=== PATIENT | male | born 1980 | race Caucasian/White ===

== ENCOUNTER 2020-09-19 11:24 | Inpatient (IN) | payer SELFPAY ==
[~2020-09-19] VITALS: Ht 180.3 cm; Wt 86.4 kg
[2020-09-19] MEDS ORDERED: IV NORMAL SALINE 1,000ML 1,000 ML IV SCH (12:00)
[2020-09-19] MEDS ORDERED: ONDANSETRON PF 4 MG/2 ML VIAL. IVP ONE (12:00)
[2020-09-19] MEDS ORDERED: HYDROmorphone PF 1 MG/ML DISP.SYRIN IVP ONE (12:00)
--- NOTE | 2020-09-19 12:08 | EKG ---
[address] [address] Test Date: 2020-09-19 Test Time: 11:38:21 Pat Name: CALLY PAGEPingYessica Department: Room: Gender: M Binman: DANISHA : 1980 Requested By: JEY HENLEY Order Number: [id number] Reading MD: Measurements Intervals [place] Rate: 79 P: 26 AL: 130 QRS: 29 QRSD: 82 T: 28 QT: 368 QTc: 423 Interpretive Statements SINUS RHYTHM OTHERWISE NORMAL ECG RI6.02 No previous ECG available for comparison
[2020-09-19 12:41] LABS: BASO % 0 % (0-3); EOS % 0 % (0-3); HEMATOCRIT 52.3 % (39.0-53.0); LYMPH # 1.1 x10^3/uL (1.0-4.8); LYMPH % 8 % (24-48); MEAN CORPUSCULAR HEMOGLOBIN 34 pg (25-35); MEAN CORPUSCULAR HGB CONC 34 g/dL (31-37); MEAN CORPUSCULAR VOLUME 99 fL (79-100); MONO # 0.7 x10^3/uL (0.0-1.1); MONO % 5 % (0-9); NEUT # 12.2 x10^3uL (1.8-7.7); NEUT % 87 % (31-73); PLATELET COUNT 198 x10^3/uL (140-400); RED BLOOD COUNT 5.29 x10^6/uL (4.30-5.70); RED CELL DISTRIBUTION WIDTH 13.2 % (11.5-14.5)
[2020-09-19 12:42] LABS: CALCIUM 8.8 mg/dL (8.5-10.1); CREATININE 1.1 mg/dL (0.7-1.3); GFR 74.1; POTASSIUM 4.1 mmol/L (3.5-5.1)
[2020-09-19 12:48] LABS: ALBUMIN 3.6 g/dL (3.4-5.0); DIRECT BILIRUBIN 0.1 mg/dL (0.0-0.2); TOTAL BILIRUBIN 0.6 mg/dL (0.2-1.0); TOTAL PROTEIN 7.6 g/dL (6.4-8.2)
--- NOTE | 2020-09-19 12:52 | RAD ---
XR CHEST 1V Clinical History: Reason: upper abd pain, left chest pain / Spl. Instructions: / History: Technique: AP view of the chest was obtained at 09/19/2020 12:27 PM. Comparison: None. Findings: The cardiomediastinal silhouette is normal. The pulmonary vasculature is normal. The lungs and pleura l margins are clear. Impression: No evidence of an acute cardiopulmonary process. Electronically signed by: Buzz Lopez III, MD (09/19/2020 12:49 PM) [facility]
--- NOTE | 2020-09-19 12:53 | RAD ---
EXAM: CT Abdomen and Pelvis without IV contrast CLINICAL HISTORY: Left flank pain COMPARISON: none TECHNIQUE: Helical CT of the abdomen and pelvis without intravenous contrast. Axial, coronal and sagi ttal reformatted images were generated. PQRS compliance statement - One or more of the following individualized dose reduction techniques wer e utilized for this study: 1. Automated exposure control 2. Adjustment of the mA and/or kV according to patient size 3. Use of iterative reconstruction technique FINDINGS: Lack of intravenous contrast limits evaluation of solid organs, vasculature, and lymph nodes. Lower chest: Lung bases are clear. Abdomen and Pelvis: Hepatic hypoattenuation likely fatty liver. High density material dependently within the gallbladder likely sludge. The spleen and adrenal glands are grossly unremarkable. No focal renal lesion. Nonobstructing renal calculi bilaterally. No hydronephrosis or hydroureter. Bl adder is unremarkable. There is infiltration about the pancreatic tail consistent with acute pancreatitis. No associated loc ulated fluid collection. Appendix is normal. Moderate colonic stool content is seen. No small or large bowel dilatation. No ab dominal or pelvic ascites. No abdominal or pelvic lymphadenopathy. Trace fat-containing periumbilical hernia. Aorta is normal in caliber with intermittent atherosclerot ic calcifications. Bones: No aggressive osseous lesion is seen. IMPRESSION: 1. Acute pancreatitis without associated loculated fluid collection. 2. Hepatic hypoattenuation likely fatty liver. 3. High density material dependently within the gallbladder likely sludge. 4. Nonobstructing renal calculi bilaterally. No hydronephrosis or hydroureter. Electronically signed by: Leonid Philip MD (09/19/2020 12:50 PM) [facility]
--- NOTE | 2020-09-19 13:36 | PHYS DOC ---
Past History Past Medical History: Hypertension Past Surgical History: Other Additional Past Surgical Histo: Vascular surgery to right arm. Alcohol Use: Heavy Additional Alcohol Information: 1 pint daily General Adult EDM: Chief Complaint: ABDOMINAL PAIN HPI: HPI: 40-year-old male past medical history UTI alcohol abuse and tobacco dependence, presents the ED with complaints of epigastric abdominal pain and right mid axillary line rib pain with associated nausea, nonbloody nonbilious vomiting 3 times this morning. Symptoms were preceded by a normal bowel movement around 7:30 AM. Review of Systems: Review of Systems: Constitutional: Denies fever or chills Eyes: Denies change in visual acuity HENT: Denies nasal congestion or sore throat Respiratory: Denies cough or shortness of breath Cardiovascular: Denies chest pain or edema GI: Denies abdominal pain, nausea, vomiting, bloody stools or diarrhea : Denies dysuria Musculoskeletal: Denies back pain or joint pain Integument: Denies rash Neurologic: Denies headache, focal weakness or sensory changes Endocrine: Denies polyuria or polydipsia Lymphatic: Denies swollen glands Psychiatric: Denies depression or anxiety Current Medications: Current Meds: Current Medications Medications (Trade) Dose Ordered Sig/Alvina Start Time Stop Time Status Last Admin Dose Admin Hydromorphone HCl (Dilaudid) 1 mg 1X ONCE 09/19/20 12:00 09/19/20 12:06 DC 09/19/20 12:19 1 MG Ondansetron HCl (Zofran) 4 mg 1X ONCE 09/19/20 12:00 09/19/20 12:06 DC 09/19/20 12:18 4 MG Sodium Chloride 1,000 ml @ 1,000 mls/hr Q1H 09/19/20 12:00 09/19/20 12:59 DC 09/19/20 12:17 1,000 MLS/HR Allergies: Allergies: Allergies Coded Allergies Type Severity Reaction Last Updated Verified No Known Drug Allergies 09/19/20 No Physical Exam: PE: Constitutional: Well developed, well nourished, no acute distress, non-toxic appearance. HENT: Normocephalic, atraumatic, Eyes: EOMI, conjunctiva normal, no discharge. Neck: Normal range of motion, supple, Cardiovascular: S1/2 present, regular rhythm Lungs & Thorax: Speaking in full sentences, bilateral equal chest rise, no tachypnea or increased work of breathing Abdomen: soft, no tenderness, Skin: Warm, dry, no erythema, no rash. [] Back: No tenderness, no CVA tenderness. [] Extremities: No tenderness, no cyanosis, no lower extremity edema Neurologic: Alert and oriented X 3, normal motor function, normal sensory function, no focal deficits noted. [] Psychologic: Affect normal, judgement normal, mood normal. [] Current Patient Data: Labs: Laboratory Tests Test 09/19/20 11:55 White Blood Count 14.0 x10^3/uL (4.0-11.0) H Red Blood Count 5.29 x10^6/uL (4.30-5.70) Hemoglobin 18.0 g/dL (13.0-17.5) H Hematocrit 52.3 % (39.0-53.0) Mean Corpuscular Volume 99 fL (79-100) Mean Corpuscular Hemoglobin 34 pg (25-35) Mean Corpuscular Hemoglobin Concent 34 g/dL (31-37) Red Cell Distribution Width 13.2 % (11.5-14.5) Platelet Count 198 x10^3/uL (140-400) Neutrophils (%) (Auto) 87 % (31-73) H Lymphocytes (%) (Auto) 8 % (24-48) L Monocytes (%) (Auto) 5 % (0-9) Eosinophils (%) (Auto) 0 % (0-3) Basophils (%) (Auto) 0 % (0-3) Neutrophils # (Auto) 12.2 x10^3uL (1.8-7.7) H Lymphocytes # (Auto) 1.1 x10^3/uL (1.0-4.8) Monocytes # (Auto) 0.7 x10^3/uL (0.0-1.1) Eosinophils # (Auto) 0.0 x10^3/uL (0.0-0.7) Basophils # (Auto) 0.0 x10^3/uL (0.0-0.2) Sodium Level 138 mmol/L (136-145) Potassium Level 4.1 mmol/L (3.5-5.1) Chloride Level 102 mmol/L (98-107) Carbon Dioxide Level 24 mmol/L (21-32) Anion Gap 12 (6-14) Blood Urea Nitrogen 12 mg/dL (8-26) Creatinine 1.1 mg/dL (0.7-1.3) Estimated GFR (Cockcroft-Gault) 74.1 Glucose Level 120 mg/dL (70-99) H Calcium Level 8.8 mg/dL (8.5-10.1) Total Bilirubin 0.6 mg/dL (0.2-1.0) Direct Bilirubin 0.1 mg/dL (0.0-0.2) Aspartate Amino Transferase (AST) 78 U/L (15-37) H Alanine Aminotransferase (ALT) 97 U/L (16-63) H Alkaline Phosphatase 97 U/L (46-116) Creatine Kinase 180 U/L (39-308) Troponin I Quantitative < 0.017 ng/mL (0-0.055) Total Protein 7.6 g/dL (6.4-8.2) Albumin 3.6 g/dL (3.4-5.0) Lipase 428 U/L (73-393) H Vital Signs: Vital Signs Date Time Temp Pulse Resp B/P (MAP) Pulse Ox O2 Delivery O2 Flow Rate FiO2 09/19/20 12:19 24 99 09/19/20 11:35 98.9 80 196/128 (150) EKG: EKG: Sinus rhythm at 79 bpm, no axis deviation, normal intervals, no T wave inversions, no ST elevations or ST depressions, no active chest pain or pressure Radiology/Procedures: Radiology/Procedures: []IMAGING REPORT Signed PATIENT: GLENIS ELLIOTT ACCOUNT: [id number] : 05/09/1938 LOCATION: ER AGE: 82 SEX: F EXAM STATUS: REG ER ORD. PHYSICIAN: JEY HENLEY DO REASON: unwitnessed PROCEDURE: CT CHEST ABD PELVIS W/CONTRAST CT LUMBAR SPINE WO, CT CHEST+ABD+PELVIS W, CT THORACIC SPINE WO dated 09/19/2020 10:08 AM Indication:Reason: unwitnessed / Spl. Instructions: / History: Comparison: CT of 07/15/2020. Technique: CT images were performed through the chest abdomen and pelvis using an infusion of 75 mL Omnipaque 300. Additional scanning was performed through the thoracic and lumbar spine with sagittal coronal reconstructions. One or more of the following individualized dose reduction techniques were utilized for this examination: 1. Automated exposure control 2. Adjustment of the mA and/or kV according to patient size 3. Use of iterative reconstruction technique Findings: CT chest: There are small bilateral pleural effusions. There is some adjacent lower lobe atelectasis. Some atelectasis is also seen in the lingula and right middle lobe. The central airways show no obstruction. There is no apparent adenopathy or evidence of mediastinal hemorrhage. A small amount of debris is visible in the esophagus. CT abdomen pelvis: The liver and spleen are homogeneous in density and normal in configuration. There is no adjacent free fluid. Both kidneys enhance with contrast. No mass or obstruction is seen. There is no evidence of injury. The adrenal glands and pancreas appear normal. No free fluid is visible in the abdomen. Images through the pelvis show no abnormality of the distal ureters or bladder. There is no apparent free pelvic fluid. There appears to be some motion artifact through the mid pelvis, but bone windows show no apparent abnormality here. CT thoracic spine: There is suggestion of mild spinal curvature. There is no apparent loss of vertebral body height or other evidence for fracture. Intervertebral discs are fairly well maintained and no destructive process is seen. Evaluation of the soft tissue components of the canal is limited without intrathecal contrast. CT lumbar spine: Changes of kyphoplasty are now seen at the L1 level. Degree of vertebral compression may have increased centrally. Some of the cement has extruded superiorly and abuts the T12 vertebral body anteriorly with possible mild erosion. No new lumbar fracture is seen. Postoperative changes are again shown bridging L4-5. There is suggestion of a healing fracture at the upper and of S3. Evaluation of the soft tissue components of the canal is limited without intrathecal contrast. IMPRESSION: CT chest: Small pleural effusions and mild atelectasis. No significant acute findings. CT abdomen pelvis: No evidence of solid organ injury or free fluid. CT thoracic spine: No acute abnormality. CT lumbar spine: There are now changes of kyphoplasty at L1. Extruded cement may be causing early erosion of the anterior margin of T12. There is no evidence of acute fracture in the lumbar spine. There appears to be a healing S3 fracture. Electronically signed by: Chavo Morrissey Jr., MD (09/19/2020 12:56 PM) [id number] DICTATED AND SIGNED BY: CHAVO MORRISSEY Jr, MD DATE: 09/19/20 1243 CC: STAS ASH MD; JEY HENLEY DO ~MTH0 0 IMAGING REPORT Signed PATIENT: CALLY CARBALLO ACCOUNT: [id number] : 1980 LOCATION: ER AGE: 40 SEX: M EXAM STATUS: REG ER ORD. PHYSICIAN: JEY HENLEY DO REASON: upper abd pain, left chest pain PROCEDURE: PORTABLE CHEST 1V XR CHEST 1V Clinical History: Reason: upper abd pain, left chest pain / Spl. Instructions: / History: Technique: AP view of the chest was obtained at 09/19/2020 12:27 PM. Comparison: None. Findings: The cardiomediastinal silhouette is normal. The pulmonary vasculature is normal. The lungs and pleural margins are clear. Impression: No evidence of an acute cardiopulmonary process. Electronically signed by: Robby Oscar III, MD (09/19/2020 12:49 PM) [facility] DICTATED AND SIGNED BY: ROBBY OSCAR III, MD DATE: 09/19/20 1249 CC: PCP,NO; JEY HENLEY DO ~MTH0 0 Heart Score: C/O Chest Pain: No Risk Factors: Risk Factors: DM, Current or recent (<one month) smoker, HTN, HLP, family history of CAD, obesity. Risk Scores: Score 0 - 3: 2.5% MACE over next 6 weeks - Discharge Home Score 4 - 6: 20.3% MACE over next 6 weeks - Admit for Clinical Observation Score 7 - 10: 72.7% MACE over next 6 weeks - Early Invasive Strategies Course & Med Decision Making: Course & Med Decision Making Pertinent Labs and Imaging studies reviewed. (See chart for details) Concern for acute pancreatitis secondary to frequent alcohol abuse. CT imaging was concerning for high dense material within gallbladder, concerning for sludge. Patient with no Lopes sign on physical exam. Patient with asymptomatic, uncontrolled hypertension-likely also pain related. I have spoken with the patient and/or caregivers. I have explained the patient's condition, diagnosis and treatment plan based on the information available to me at this time. I have answered the patient's and/or caregivers questions and answered any concerns. The patient and/or caregivers have as good an understanding of the patient's diagnosis, condition and treatment plan as can be expected at this point. The patient has been stabilized within the capability of the emergency department. The patient will be transported for further care and management or will be moved to an observation or inpatient service. I have communicated with the staff or medical practitioner taking over this patient's care. Dragon Disclaimer: Shawn Disclaimer: This electronic medical record was generated, in whole or in part, using a voice recognition dictation system. Departure Departure: Impression: Primary Impression: Acute pancreatitis Additional Impressions: Uncontrolled hypertension Alcohol use Disposition: ADMITTED INPATIENT Admitting Physician: Rush Salomon Condition: STABLE Referrals: PCPS[facility] (PCP) JEY HENLEY DO September 19, 2020 13:36
[2020-09-19] MEDS: ONDANSETRON PF 4 MG/2 ML VIAL. IVP PRN ×2 (14:40→19:13)
[2020-09-19] MEDS: HYDROmorphone PF 1 MG/ML DISP.SYRIN IV PRN ×4 (14:42→21:37)
[2020-09-19 15:05] LABS: BARBITURATES NEG (NEG); BENZODIAZEPINES NEG (NEG); CANNABINOIDS POS (NEG); COCAINE NEG (NEG); METHADONE NEG (NEG); OPIATES POS (NEG); PHENCYCLIDINE NEG (NEG)
[2020-09-19 15:09] LABS: AMPHETAMINE/METHAMPHETAMINE NEG (NEG)
[2020-09-19 15:14] LABS: BACTERIA,URINE 0 /HPF (0-FEW); BILIRUBIN,URINE NEG (NEG); CLARITY,URINE CLEAR; COLOR,URINE YELLOW; GLUCOSE,URINE NEG (NEG); NITRITE,URINE NEG (NEG); RBC,URINE 0 /HPF (0-2); UROBILINOGEN,URINE 0.2 mg/dL (0.2 mg/dL); WBC,URINE 0 /HPF (0-4)
[2020-09-19 16:57] VITALS: BP 194/119
--- NOTE | 2020-09-19 17:08 | NUR ---
The patient, CALLY CARBALLO, 40 y/o, M admitted by DARNELL SHEIKH MD, was given written information regarding hospital policies, unit procedures and contact persons. Valuables were checked and VS taken, please see chart.
--- NOTE | 2020-09-19 17:09 | NUR ---
This nurse called Dr. Salomon for admission orders and to notify of patient's BP. BP 194/[address] Salomon states this is "d/t patient's pain and I am not going to treat at this time." Pain medication has been given at admission. Patient's BP was elevated in ED as well w/o treatment. Pain medications given in ED as well. No further concerns at this time, will continue to monitor.
[2020-09-19] MEDS: IV NORMAL SALINE 1,000ML 1,000 ML IV SCH (17:33)
[2020-09-19 19:55] VITALS: BP 196/106
[2020-09-19 23:13] VITALS: BP 198/114
[2020-09-20] MEDS: HYDROmorphone PF 1 MG/ML DISP.SYRIN IV PRN ×3 (01:27→07:54)
[2020-09-20] MEDS: IV NORMAL SALINE 1,000ML 1,000 ML IV SCH (03:26)
[2020-09-20] MEDS: ONDANSETRON PF 4 MG/2 ML VIAL. IVP PRN ×2 (03:32→07:54)
[2020-09-20 06:27] VITALS: BP 188/133
--- NOTE | 2020-09-20 09:58 | HP ---
ADMIT DATE: 09/19/2020 ATTENDING PHYSICIAN: Dr. Salomon. CHIEF COMPLAINT: Abdominal pain. HISTORY OF PRESENT ILLNESS: The patient is a 40-year-old gentleman admitted with associated nonspecific abdominal pain, nonbilious vomiting and nausea. Workup in the ED show evidence of acute pancreatitis related to binge alcohol use. He is admitted for further treatment and evaluation. PAST MEDICAL HISTORY: Significant for hypertension, questionable compliance, vascular surgery to the right arm. ALLERGIES: He has no known drug allergies. SOCIAL HISTORY: He is a drinker, heavy alcohol use daily. No significant drug use. FAMILY HISTORY: Noncontributory. REVIEW OF SYSTEMS: Significant for the GI symptoms. No recent travel or COVID exposure. No bloody emesis. All other systems reviewed and turned to be negative. PHYSICAL EXAMINATION: GENERAL: When I saw him this is a pleasant, healthy young gentleman. VITAL SIGNS: Initial vital signs showed a blood pressure 180/130, pulse is 76 and regular, temperature 99.1 degrees Fahrenheit, oxygen saturation 97% on room air. HEENT: Head is without trauma. Pupils are reactive. Sclerae nonicteric. Oropharynx clear. NECK: Supple, no bruits identified. LUNGS: Otherwise clear. CARDIOVASCULAR: Regular heart tones. No gallops. ABDOMEN: Soft. EXTREMITIES: Without edema. NEUROLOGIC: Focally intact. SKIN: Warm and dry. PERTINENT LABORATORY AND X-RAY STUDIES: His lipase was not that elevated at 428. Electrolytes within normal range. Hemoglobin 18.0 g, white count 14,000. His CT of the abdomen and pelvis showed acute pancreatitis without associated fluid collection, hepatic hypoattenuation suggesting fatty liver and gallbladder sludge. ASSESSMENT: 1. A 40-year-old gentleman with acute pancreatitis. 2. Labile hypertension. 3. Chronic alcoholism. PLAN: 1. Admit to the inpatient unit. 2. N.p.o. 3. Pain and nausea control. 4. Gentle IV hydration. JERO/LASHAWN EDDY: JERO/prashanth TID: [id number]
--- NOTE | 2020-09-20 10:58 | NUR ---
Discharge note Pt discharged from unit at 10:58 via ambulation accompained by family member. Pt educated verbally and given written instructions with verbal statement of understanding given. Pt educated to follow up with his primary care doctor.
--- NOTE | 2020-09-20 20:05 | DS ---
DATE OF DISCHARGE: 09/20/2020 ATTENDING PHYSICIAN: Dr. Salomon. FINAL DISCHARGE DIAGNOSES: 1. Acute pancreatitis, resolving. 2. Chronic alcoholism. 3. Labile hypertension. 4. Noncompliance with meds. HISTORY OF PRESENT ILLNESS: The patient is a 40-year-old gentleman, chronic alcoholic. He drinks excess. He was admitted with abdominal pain and CT evidence of acute pancreatitis without any complications. No phlegmon or pseudocyst. He was admitted for further treatment and evaluation. PHYSICAL EXAMINATION: Please see the dictated note. PERTINENT LABORATORY AND X-RAY STUDIES: His hemoglobin is 18 g in a hemoconcentrated state. Electrolytes within normal range. Creatinine noted. Lipase was not particularly elevated, but CT of the abdomen showed evidence of acute pancreatitis. Blood pressure was also elevated, this is consistent related pain. HOSPITAL COURSE: He was admitted, started on pain and nausea control, IV hydration and ice chips sparingly. He did better. By the second hospital day, his vital signs are stable. Blood pressure is still elevated. Abdomen was soft. No guarding. He was ready for discharge. Strong encouragement to avoid further alcohol use, he complies. I also wrote a script for atenolol 100 mg p.o. daily along with Percocet 10/325 one every 6 hours p.r.n. pain. I suggested strongly followup visit to recheck blood pressure in 1 month's time. He is in the process of establishing himself with a primary care physician. He was discharged from our hospital in stable condition with explicit drug and followup care. JERO/PANKAJ/TRIP DR: Kip TID: [id number]
== END 2020-09-20 11:01 | disposition home or self-care (01) | DRG 439 ==
LOC: ER 11:24 → 1 SOUTH 14:25
PROVIDERS: ADMIT Hospitalist; ATTEND Hospitalist
DX: K85.90 Acute pancreatitis without necrosis or infection, unspecified (principal); J98.11 Atelectasis; F10.20 Alcohol dependence, uncomplicated; I10 Essential (primary) hypertension; Z87.440 Personal history of urinary (tract) infections; Z87.891 Personal history of nicotine dependence; Z91.14 Patient's other noncompliance with medication regimen
CPT/HCPCS: 36415; 71045; 74176; 80048; 80076; 80307; 81001; 82550; 83690; 84484; 85025; 93005; 96361; 96374; 96375; J1170; J2405; 99285-25; J7030